=== PATIENT | male | born 1995 | race Caucasian/White ===

== ENCOUNTER 2025-02-22 07:08 | Emergency (ER) | payer OTHER ==
[~2025-02-22] VITALS: Ht 177.8 cm; Wt 71.0 kg
[~2025-02-22 07:08] MED LIST: IBUPROFEN600 MG PO; ONDANSETRON ODT8 MG PO; ROBAXIN-750750 MG PO
[2025-02-22] MEDS ORDERED: LIDOCAINE HCL 4% 1 EACH PATCH TD ONE (07:45)
[2025-02-22] MEDS ORDERED: CYCLOBENZAPRINE HCL 10 MG TAB PO ONE (07:45)
[2025-02-22] MEDS ORDERED: IBUPROFEN 600 MG TAB PO ONE (07:45)
[2025-02-22] MEDS ORDERED: ACETAMINOPHEN 500 MG TAB PO ONE (07:45)
[2025-02-22] MEDS ORDERED: CYCLOBENZAPRINE10 MG PO (09:03)
[2025-02-22 09:20] VITALS: BP 123/95
[2025-02-22] MEDS ORDERED: LIDOCAINE PATCH REMOVAL 1 EA TD SCH (21:00)
== END 2025-02-22 09:23 | disposition home or self-care (01) ==
LOC: ED 07:08
DX: S16.1XXA Strain of muscle, fascia and tendon at neck level, initial encounter (principal); M54.6 Pain in thoracic spine; F17.200 Nicotine dependence, unspecified, uncomplicated; W01.0XXA Fall on same level from slipping, tripping and stumbling without subsequent striking against object, initial encounter
CPT/HCPCS: 72040; 72070; 72125; 99284; A9270